=== PATIENT | male | born 1970 | race African-American/Black ===

== ENCOUNTER 2019-01-02 08:33 | Day surgery (SDC) | payer OTHER ==
[2019-01-01 14:34] VITALS: Ht 193 cm; Wt 90.9 kg
[~2019-01-02] VITALS: Ht 193 cm; Wt 90.9 kg
[2019-01-02] VITALS (12 sets, daily range): BP systolic 103–159; BP diastolic 64–93; PULSE 72–92; RESP 12–18
[~2019-01-02 08:33] MED LIST: CEFAZOLIN 1 GM/50 ML (PMX) 50 ML IVPB ONE; SOD CHLORIDE 0.9% 1,000 ML IV SCH
[2019-01-02] MEDS ORDERED: HYDR12.58 PO (09:01)
[2019-01-02] MEDS ORDERED: GABA300C16 PO (09:01)
[2019-01-02] MEDS ORDERED: AMLO-147 PO (09:01)
[2019-01-02] MEDS ORDERED: ATOR20TA38 PO (09:01)
[2019-01-02] MEDS ORDERED: MTF1000T PO (09:01)
[2019-01-02] MEDS ORDERED: LISI40TA3 PO (09:01)
[2019-01-02] MEDS ORDERED: NOVO3I SC (09:01)
[2019-01-02] MEDS ORDERED: INSU100I33 SC (09:01)
[2019-01-02] MEDS ORDERED: FLUT9.9S NASAL (09:01)
--- NOTE | 2019-01-02 10:41 | PREAC ---
Date/Time of Note Date/Time of Note DATE: 01/02/19 TIME: 10:39 Anesthesia Eval and Record Evaluation Time Pre-Procedure Interview DATE: 01/02/19 TIME: 10:39 Age 48 Sex male NPO: 8 hrs Preoperative diagnosis Rt Knee foreignbody Planned procedure Rt Knee removal of Foreignbody Past Medical History Past Medical History: Includes Cardio: HTN, Dyslipidemia Endo: Diabetes Surgery & Anesthesia Issues No known issue Meds Anticoagulation: No Beta Carissa within 24 hr: No Reason Beta Carissa not given: Pt. not on B-Carissa Reported Medications Fluticasone Propionate (Flonase Allergy Relief) 9.9 Ml [place].susp, 2 SPRAY NASAL DAILY, #1 BOTTLE TO EACH NOSTRIL 01/02/19 Metformin* (Glucophage*) 1,000 Mg Tablet, 1000 MG PO WITH BREAKFAST DINNE, #30 TAB 01/02/19 Amlodipine Besylate* (Amlodipine Besylate*) 10 Mg Tablet, 10 MG PO DAILY, #30 TAB 01/02/19 Insulin Glargine,Hum.rec.anlog (Basaglemmanuelle Hunterikpen U-100) 100 Unit/1 Ml Insuln.pen, 20 UNIT SC HS, EA 01/02/19 Hydrochlorothiazide* (Hydrochlorothiazide*) 12.5 Mg Tablet, 12.5 MG PO DAILY, #30 TAB 01/02/19 Gabapentin* (Gabapentin*) 300 Mg Capsule, 300 MG PO DAILY, #60 CAP 01/02/19 Atorvastatin Calcium* (Atorvastatin Calcium*) 20 Mg Tablet, 20 MG PO QHS, #30 TAB 01/02/19 Lisinopril* (Lisinopril*) 40 Mg Tablet, 40 MG PO DAILY, #30 TAB 01/02/19 Insulin Aspart* (Novolog Insulin Pen*) 100 Unit/Ml Soln, 5 UNIT SC WITH MEALS, EA 01/02/19 Current Medications Sodium Chloride 1,000 ml @ 75 mls/hr [id number] IV ; Start 01/02/19 at 08:00; Stop 01/02/19 at 21:19 Meds reviewed: Yes Allergies Coded Allergies: No Known Drug Allergies (Unverified Allergy, Unknown, 01/02/19) Allergies Reviewed: Yes Labs/Studies Labs Reviewed: Reviewed by anesthesiologist test: N/A Studies: ECG Pre-procedure Exam Last vitals Vital Signs Date Temp Pulse Resp B/P (MAP) Pulse Ox O2 O2 Flow FiO2 Time Delivery Rate 01/02/19 97.8 91 16 138/86 100 Room Air 09:46 (103) Airway: Adequate mouth opening, Adequate thyromental dist Mallampati: Mallampati II Teeth: Normal Lung: Normal Heart: Normal ASA Physical Status ASA physical status: 3 Emergency: None Planned Anesthetic General/MAC: LMA Planned Pain Management Parenteral pain med, Local by surgeon Pre-operative Attestations Prior to commencing anesthesia and surgery, the patient was re-evaluated, there was verification of: *The patient's identity *The results of appropriate recent lab work and preoperative vital signs *The above evaluation not changing prior to induction *Anesthetic plan, risk benefits, alternative and complications discussed with patient/family; questions answered; patient/family understands, accepts and wishes to proceed. DANGELO LOBO MD Jan 02, 2019 10:41
[2019-01-02] MEDS ORDERED: FENTAnyl 50 MCG/ML VIAL ONE (10:52)
[2019-01-02] MEDS ORDERED: MIDAZOLAM 1 MG/ML 2 ML INJ ONE (10:52)
[2019-01-02] MEDS ORDERED: BUPIVACAINE 0.5%/EPI (SDV) 30 ML INJ ONE (11:22)
[2019-01-02] MEDS ORDERED: LIDOCAINE 2% (SDV) 5 ML INJ ONE (11:38)
[2019-01-02] MEDS ORDERED: PROPOFOL 20 ML ONE (11:38)
[2019-01-02] MEDS ORDERED: ONDANSETRON 4 MG INJ ONE (11:39)
[2019-01-02] MEDS ORDERED: CEFAZOLIN 1 GM INJ ONE (11:39)
--- NOTE | 2019-01-02 11:46 | SIPON ---
Date/Time of Note Date/Time of Note DATE: 01/02/19 TIME: 11:44 Operative Report Preoperative Diagnosis Foreign body medial aspect of right knee Postoperative Diagnosis Same Operation/Procedure Performed Removal of foreign body medial aspect of right knee under fluoroscopic guidance Surgeon see signature line social science research assistant Dr Galeano Anesthesia: general Estimated blood loss: 0 - 10 ml's Transfusion Required none Specimen firiegn body gross only Grafts/Implants none Complications none MASOOD GONZALES MD Jan 02, 2019 11:46
--- NOTE | 2019-01-02 12:06 | PAC ---
Date/Time of Note Date/Time of Note DATE: 01/02/19 TIME: 12:05 Post-Anesthesia Notes Post-Anesthesia Note Last documented vital signs Vital Signs Date Temp Pulse Resp B/P (MAP) Pulse Ox O2 O2 Flow FiO2 Time Delivery Rate 01/02/19 98.0 12:03 01/02/19 91 16 138/86 100 Room Air 09:46 (103) Activity: WNL Respiratory function: WNL Cardiovascular function: WNL Mental status: Baseline Pain reasonably controlled: Yes Hydration appropriate: Yes Nausea/Vomiting absent: Yes Comments BP:105/65, P:78, Spo2:100%, T:98,7 DANGELO LOBO MD Jan 02, 2019 12:06
[2019-01-02] MEDS ORDERED: HYDROmorphONE 1 MG/5 ML IV SYRINGE IV PRN ×2 (12:30)
[2019-01-02] MEDS ORDERED: FENTAnyl 50 MCG/ML VIAL IV PRN (12:30)
[2019-01-02] MEDS ORDERED: ONDANSETRON 4 MG INJ IV PRN (12:30)
[2019-01-02] MEDS ORDERED: MEPERIDINE 25 MG INJ IV PRN (12:30)
[2019-01-02] MEDS ORDERED: METOCLOPRAMIDE 10 MG INJ IV PRN (12:30)
[2019-01-02] MEDS ORDERED: hydrALAzine 20 MG INJ IV PRN (12:30)
[2019-01-02] MEDS ORDERED: DIPHENHYDRAMINE 50 MG INJ IV PRN (12:30)
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
== END 2019-01-02 14:01 | disposition home or self-care (01) ==
LOC: SDS 08:33
PROVIDERS: ATTEND Surgery Surgical Oncology
DX: M79.5 Residual foreign body in soft tissue (principal); I10 Essential (primary) hypertension; E78.5 Hyperlipidemia, unspecified; E11.9 Type 2 diabetes mellitus without complications
CPT/HCPCS: 27372; 73562; 82962; 88304; J0690; J2250; J2405; J3010; Z7512; Z7610